=== PATIENT | male | born 2000 | race Caucasian/White ===

== ENCOUNTER 2018-02-16 20:04 | Emergency (ER) | payer OTHER ==
[2018-02-16] MEDS: SOD CHLORIDE 0.9% 1,000 ML IV (21:36)
[2018-02-16] MEDS: DIPHENHYDRAMINE 50 MG INJ IV (21:36)
[2018-02-16] MEDS: ONDANSETRON 4 MG INJ IV (21:36)
[2018-02-16] MEDS: KETOROLAC 30 MG INJ IV (21:37)
== END 2018-02-16 23:23 | disposition home or self-care (01) ==
LOC: FTE 20:04
DX: R51 Headache (principal)
CPT/HCPCS: 96361; 96374; 96375; 99284-25

== ENCOUNTER 2018-08-31 11:01 | Emergency (ER) | payer OTHER ==
[2018-08-31] MEDS: ONDANSETRON (ODT) 4 MG TAB ODT (11:46)
== END 2018-08-31 13:18 | disposition home or self-care (01) ==
LOC: FTE 11:01
DX: N50.812 Left testicular pain (principal); R19.7 Diarrhea, unspecified
CPT/HCPCS: 76870; 99284-25